=== PATIENT | female | born 1950 | race Caucasian/White ===

== ENCOUNTER 2017-09-27 07:00 | Day surgery (SDC) | payer MEDICARE ==
[2017-09-26 09:17] VITALS: BMI 30.4
[2017-09-27 08:11] LABS: #Eosinphils 0.2 thou/uL (0.0-0.7); #Lymphocytes 1.6 thou/uL (1.20-3.40); #Monocytes 0.4 thou/uL (0.11-0.59); #Neutrophils 3.6 thou/uL (1.40-6.50); %Basophils 0.4 % (0.0-1.0); %Eosinophils 3.7 % (0.0-10.0); %Lymphocytes 27.6 % (21.0-51.0); %Monocytes 7.1 % (0.0-10.0); %Neutrophils 61.1 % (42.0-75.0); Hemoglobin 13.5 g/dL (12.0-16.0); Mean Corpuscular HGB CONC 33.9 g/dL (32.0-36.0); Mean Corpuscular Hemoglobin 31.6 pg (27.0-31.0); Mean Corpuscular Volume 93.2 fl (81.0-99.0); Mean Platelet Volume 6.8 fL (7.4-10.4); Platelet Count 297 thou/uL (130-400); RBC Distribution Width 11.2 % (11.5-14.5); Red Blood Cell (RBC) Count 4.26 mill/uL (4.20-5.40); White Blood Cell (WBC) Count 5.8 thou/uL (4.8-10.8)
[2017-09-27] MEDS ORDERED: Midazolam HCl 2 mg/2 ml Vial ONE ×2 (08:16→08:35)
[2017-09-27 08:23] LABS: Anion Gap 12 mmol/L (10-20); BUN (Urea Nitrogen) 10 mg/dL (9.8-20.1); Calc. Creatinine Clearance 120 mL/min (70-130); Calcium 9.5 mg/dL (7.8-10.44); Carbon Dioxide 28 mmol/L (23-31); Chloride 106 mmol/L (98-107); Estimated GFR-MDRD 88; Glucose 90 mg/dL (80-115); Potassium 4.1 mmol/L (3.5-5.1); Sodium 142 mmol/L (136-145)
[2017-09-27] MEDS ORDERED: Lidocaine 1% w/Epinephrine 1:200K 30 ML VIAL ONE (08:29)
[2017-09-27] MEDS ORDERED: Propofol 500 MG/50 ML VIAL ONE (08:46)
[2017-09-27] MEDS ORDERED: Fentanyl 100 MCG/2 ML VIAL ONE (08:57)
--- NOTE | 2017-09-27 13:33 | OP ---
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 POSTOPERATIVE DIAGNOSES: Right carpal tunnel and right cubital syndrome. SURGEON: Cheko Freed M.D. ANESTHESIA: General. BLOOD LOSS: Minimal. SPECIMEN: None. DRAINS: None. COMPLICATIONS: None. TITLE OR PROCEDURE: Right carpal tunnel release, right cubital tunnel release. DESCRIPTION OF PROCEDURE: The arm was prepped and draped in the usual sterile fashion, anesthetized the wrist and the elbow with lidocaine with epinephrine. The ulnar nerve was exposed elbow by making a curvilinear incision just posterior to the medial epicondyle. The ulnar nerve was exposed under d irect visualization. I exposed it proximally up to the arcade distally down to the branching of the motor nerve. Irrigation was performed. Hemostasis was obtained. Attention was then turned to the c arpal tunnel and we made incision in the central palm of the hand and dissection carried down to the transverse carpal ligament. Under direct visualization, the transverse carpal ligament was transecte d with a 15 blade knife. Hemostat was placed deep in the transverse carpal ligament. I cut down hem ostat to protect the underlying nerve. The nerve was released proximally up into the forearm fascia. Tourniquet was released. Irrigation was performed and hemostasis obtained, both incisions were shoshana sed with 3-0 nylon. Sterile dressings applied. The patient was placed and splint in a compressive d ressing for the elbow. There were no complications.
[2017-09-27] MEDS ORDERED: Lidocaine 1% PF 5 ML VIAL ONE (16:42)
[2017-09-27] MEDS ORDERED: Ondansetron HCl/PF 4 MG/2 ML Vial ONE (16:42)
[2017-09-27] MEDS ORDERED: Dexamethasone 20 MG/5 ML VIAL ONE (16:42)
== END 2017-09-27 10:51 | disposition home or self-care (01) ==
LOC: SDC 07:00
PROVIDERS: ATTEND Orthopaedic Surgery
PROC: 01N50ZZ Release Median Nerve, Open Approach (ICD-10-PCS; principal; 2017-09-27)
PROC: 01N40ZZ Release Ulnar Nerve, Open Approach (ICD-10-PCS; 2017-09-27)
DX: G56.01 Carpal tunnel syndrome, right upper limb (principal); G56.21 Lesion of ulnar nerve, right upper limb; E78.5 Hyperlipidemia, unspecified; I10 Essential (primary) hypertension; E03.9 Hypothyroidism, unspecified; Z79.890 Hormone replacement therapy; Z79.899 Other long term (current) drug therapy; Z98.84 Bariatric surgery status; Z90.710 Acquired absence of both cervix and uterus; Z90.49 Acquired absence of other specified parts of digestive tract; Z90.89 Acquired absence of other organs; Z98.890 Other specified postprocedural states
CPT/HCPCS: 36415; 80048; 85025; J1100; J2001; J2250; J2405; J2704; J3010

== ENCOUNTER 2018-07-17 12:08 | Outpatient (CLI) | payer MEDICARE | END 2018-07-17 12:09 | disposition home or self-care (01) | LOC: BICMAMMO 12:08 | PROVIDERS: ATTEND Obstetrics & Gynecology | DX: Z12.31 Encounter for screening mammogram for malignant neoplasm of breast (principal) | CPT/HCPCS: 77063; 77067 ==

== ENCOUNTER 2019-08-03 08:49 | Outpatient (CLI) | payer MEDICARE ==
--- NOTE | 2019-08-03 09:19 | MMO ---
Bilateral MAMMO Bilat Screen [facility]. CLINICAL HISTORY: Patient is 69 years old and is seen for screening. The patient has no family history of breast cancer. The patient has no personal history of cancer. The patient has a history of left Excisional Biopsy in 2004 - benign. VIEWS: The views performed were: bilateral craniocaudal with tomosynthesis and bilateral mediolateral oblique with tomosynthesis. FILMS COMPARED: The present examination has been compared to prior imaging studies performed at [facility] on 08/17/2014, 08/30/2015, 09/03/2016 and 07/17/2018. This study has been interpreted with the assistance of computer-aided detection. MAMMOGRAM FINDINGS: There are scattered fibroglandular densities. Benign calcifications are noted bilaterally. There are no suspicious masses, suspicious calcifications, or new areas of architectural distortion. IMPRESSION: THERE IS NO MAMMOGRAPHIC EVIDENCE OF MALIGNANCY. A ROUTINE FOLLOW-UP MAMMOGRAM IN 1 YEAR IS RECOMMENDED. THE RESULTS OF THIS EXAM WERE SENT TO THE PATIENT. ACR BI-RADS Category 2 - Benign finding MAMMOGRAPHY NOTE: 1. A negative mammogram report should not delay a biopsy if a dominant of clinically suspicious mass is present. 2. Approximately 10% to 15% of breast cancers are not detected by mammography. 3. Adenosis and dense breasts may obscure an underlying neoplasm. Reported by: LOIS CLEVELAND MD Electonically Signed: [id number]
== END 2019-08-03 08:50 | disposition home or self-care (01) ==
LOC: BICMAMMO 08:49
PROVIDERS: ATTEND Obstetrics & Gynecology
DX: Z12.31 Encounter for screening mammogram for malignant neoplasm of breast (principal); Z91.89 Other specified personal risk factors, not elsewhere classified
CPT/HCPCS: 77063; 77067

== ENCOUNTER 2023-08-07 07:31 | Day surgery (SDC) | payer MEDICARE ==
[2023-08-05 08:53] VITALS: BMI 30.4
[2023-08-07] MEDS ORDERED: Midazolam HCl 2 mg/2 ml Vial ONE (08:31)
[2023-08-07] MEDS ORDERED: Acetaminophen 500 MG TAB ONE (08:31)
[2023-08-07] MEDS ORDERED: CEFAZOLIN 2 GM VIAL ONE (08:41)
[2023-08-07] MEDS ORDERED: Sodium Chloride 0.9% 100 ML ONE (08:41)
[2023-08-07] MEDS ORDERED: EPINEPHrine 1 MG/ML VIAL ONE (08:51)
[2023-08-07] MEDS ORDERED: Lidocaine 1% (PF) 30 ML VIAL ONE (08:51)
[2023-08-07] MEDS ORDERED: fentaNYL 50 mcg/mL 1 mL Vial ONE (09:55)
[2023-08-07] MEDS ORDERED: Ondansetron PF 4 MG/2 ML Vial ONE ×2 (09:55→10:02)
[2023-08-07] MEDS ORDERED: Dexamethasone 20 MG/5 ML VIAL ONE (10:02)
[2023-08-07] MEDS ORDERED: Lidocaine 1% PF 5 ML VIAL ONE (10:02)
[2023-08-07] MEDS ORDERED: PROPOFOL 200 MG/20 ML VIAL ONE (10:02)
== END 2023-08-07 12:00 | disposition home or self-care (01) ==
LOC: SDC 07:31
PROVIDERS: ATTEND Neurological Surgery
PROC: 01N50ZZ Release Median Nerve, Open Approach (ICD-10-PCS; principal; 2023-08-07)
DX: G56.02 Carpal tunnel syndrome, left upper limb (principal); E78.5 Hyperlipidemia, unspecified; K58.9 Irritable bowel syndrome, unspecified; E03.9 Hypothyroidism, unspecified; I10 Essential (primary) hypertension; J30.2 Other seasonal allergic rhinitis; Z90.49 Acquired absence of other specified parts of digestive tract; Z98.84 Bariatric surgery status; Z90.710 Acquired absence of both cervix and uterus; Z79.890 Hormone replacement therapy; Z79.899 Other long term (current) drug therapy; Z98.890 Other specified postprocedural states
CPT/HCPCS: 64721; J0171; J3010; J1100; J2001; J2250; J2405; J2704; J3490

== ENCOUNTER 2024-03-25 08:24 | Outpatient (CLI) | payer MEDICARE | END 2024-03-25 08:25 | disposition home or self-care (01) | LOC: NM 08:24 | PROVIDERS: ATTEND Internal Medicine | DX: G20.A1 Parkinson's disease without dyskinesia, without mention of fluctuations (principal) | CPT/HCPCS: 78803; A9584 ×2 ==

== ENCOUNTER 2025-05-13 09:55 | Outpatient (CLI) | payer MEDICARE | END 2025-05-13 09:56 | disposition home or self-care (01) | LOC: RAD 09:55 | PROVIDERS: ATTEND Nurse Practitioner Family | DX: R05.3 Chronic cough (principal) | CPT/HCPCS: 71046 ==